=== PATIENT | female | born 1990 | race Caucasian/White ===

== ENCOUNTER → 2016-12-29 | Outpatient (CLI) | payer OTHER, SELFPAY ==
[2016-12-29 12:32] LABS: BASO % 0.4 % (0.0-1.0); EOS # 0.2 K/mm3 (0.0-0.50); LARGE UNSTAINED CELL # 0.1 K/mm3 (0.0-0.4); LARGE UNSTAINED CELL % 1.7 % (0.0-4.0); LYMPH # 2.1 K/mm3 (1.5-6.5); LYMPH % 28.5 % (24.0-44.0); MEAN CORPUSCULAR HEMOGLOBIN 31.4 pg (27.0-33.0); MEAN CORPUSCULAR HGB CONC 33.7 g/dl (32.0-36.5); MEAN CORPUSCULAR VOLUME 92.9 fl (80.0-96.0); MONO # 0.4 K/mm3 (0.0-0.8); MONO % 4.9 % (0.0-5.0); NEUTROPHILS # 4.6 K/mm3 (1.8-7.7); NEUTROPHILS % 62.5 % (36.0-66.0); PLATELET COUNT, AUTOMATED 360 k/mm3 (150-450); RED CELL DISTRIBUTION WIDTH 11.8 % (11.5-14.5); WHITE BLOOD COUNT 7.4 K/mm3 (4.0-10.0)
[2016-12-29 12:55] LABS: ALBUMIN 3.4 GM/DL (3.2-5.2); ALBUMIN/GLOBULIN RATIO 1.06 (1.00-1.93); ALKALINE PHOSPHATASE 50 U/L (45-117); ALT/SGPT 23 U/L (12-78); ANION GAP 8 MEQ/L (8-16); AST/SGOT 10 U/L (15-37); BILIRUBIN,TOTAL 0.4 MG/DL (0.2-1.0); BLOOD UREA NITROGEN 9 MG/DL (7-18); CALCIUM LEVEL 8.9 MG/DL (8.5-10.1); CARBON DIOXIDE LEVEL 27 MEQ/L (21-32); CHLORIDE LEVEL 103 MEQ/L (98-107); CHOLESTEROL LEVEL 180 MG/DL (<200); CREATININE FOR GFR 0.79 MG/DL (0.55-1.02); GLOMERULAR FILTRATION RATE > 60.0 (>60); GLUCOSE, FASTING 90 MG/DL (70-105); POTASSIUM SERUM 4.2 MEQ/L (3.5-5.1); SODIUM LEVEL 138 MEQ/L (136-145); TOTAL PROTEIN 6.6 GM/DL (6.4-8.2); TRIGLYCERIDES LEVEL 168 MG/DL (<150)
== END ==
LOC: M LAB 11:29
PROVIDERS: ATTEND Physician Assistant
DX: L68.0 Hirsutism (principal)

== ENCOUNTER → 2017-05-28 | Outpatient (CLI) | payer OTHER ==
--- NOTE | 2017-05-28 16:17 | REP ---
CT Head without contrast HISTORY: Headache COMPARISON: None There is no intraparenchymal hemorrhage, acute infarct, mass or midline shift. The ventricular system is normal in appearance. There is no extra cerebral collection. There is no fracture. The visualized sinuses are clear. IMPRESSION: There is no intracranial lesion. Signed by Hari Hunter MD 05/28/2017 04:09 P
== END ==
LOC: M RAD 15:39
PROVIDERS: ATTEND Physician Assistant
DX: R51 Headache (principal)

== ENCOUNTER → 2017-07-22 | Outpatient (CLI) | payer OTHER ==
[2017-07-22 10:56] LABS: ALBUMIN 3.5 GM/DL (3.2-5.2); ALBUMIN/GLOBULIN RATIO 0.95 (1.00-1.93); ALKALINE PHOSPHATASE 50 U/L (45-117); ALT/SGPT 28 U/L (12-78); ANION GAP 10 MEQ/L (8-16); AST/SGOT 13 U/L (7-37); BILIRUBIN,TOTAL 0.5 MG/DL (0.2-1.0); BLOOD UREA NITROGEN 9 MG/DL (7-18); CALCIUM LEVEL 8.9 MG/DL (8.5-10.1); CARBON DIOXIDE LEVEL 24 MEQ/L (21-32); CHLORIDE LEVEL 107 MEQ/L (98-107); CREATININE FOR GFR 0.88 MG/DL (0.55-1.02); GLOMERULAR FILTRATION RATE > 60.0 (>60); GLUCOSE, FASTING 95 MG/DL (70-105); POTASSIUM SERUM 3.9 MEQ/L (3.5-5.1); SODIUM LEVEL 141 MEQ/L (136-145); TOTAL PROTEIN 7.2 GM/DL (6.4-8.2)
[2017-07-22 11:04] LABS: FOLLICLE STIMULATING HORMONE 3.3 mIU/mL; LUTEINIZING HORMONE 0.9 mIU/mL
== END ==
LOC: M LAB 09:56
PROVIDERS: ATTEND Family Medicine
DX: E28.2 Polycystic ovarian syndrome (principal)

== ENCOUNTER 2017-07-29 21:32 | Emergency (ER) | payer OTHER ==
[~2017-07-29] VITALS: Ht 175.3 cm; Wt 124.1 kg
[2017-07-29] MEDS ORDERED: BENA25TA10 PO (21:48)
[2017-07-29] MEDS ORDERED: REGL5TAB2 PO (21:48)
[2017-07-29] MEDS ORDERED: TOPA50TA8 PO (21:48)
[2017-07-29] MEDS ORDERED: SPIR100T (21:48)
[2017-07-29] MEDS ORDERED: PREVTAB2 (21:48)
[2017-07-29] MEDS ORDERED: METF500T4 (21:48)
[2017-07-29] MEDS ORDERED: CEFD1CAP8 PO (22:42)
[2017-07-29 23:03] VITALS: BP 136/92
== END 2017-07-29 23:00 | disposition home or self-care (01) ==
LOC: M ED 21:32
DX: J01.00 Acute maxillary sinusitis, unspecified (principal)

== ENCOUNTER → 2017-09-08 | Outpatient (CLI) | payer OTHER | LOC: M SMT 11:51 | DX: R06.00 Dyspnea, unspecified (principal) | CPT/HCPCS: 71046 ==

== ENCOUNTER → 2017-09-13 | Outpatient (CLI) | payer OTHER | LOC: M RAD 16:54 | DX: R22.1 Localized swelling, mass and lump, neck (principal) ==

== ENCOUNTER 2017-11-11 19:20 | Emergency (ER) | payer OTHER ==
[2017-11-11] MEDS ORDERED: LIDOCAINE 1% MDV 20ML VIAL As Ordered (20:41)
[2017-11-11] MEDS: LIDOCAINE 1% MDV 20ML VIAL SC (20:45)
[2017-11-11] MEDS: ADACEL/BOOSTRIX VACCINE (DIPHTH/PERTUSS/ACELL/TETANUS)0.5ML SYR (90715) IM (21:18)
== END 2017-11-11 21:28 | disposition home or self-care (01) ==
LOC: M ED 19:20
DX: S61.512A Laceration without foreign body of left wrist, initial encounter (principal); W26.9XXA Contact with unspecified sharp object(s), initial encounter; Y92.099 Unspecified place in other non-institutional residence as the place of occurrence of the external cause; Y93.G3 Activity, cooking and baking; Z79.84 Long term (current) use of oral hypoglycemic drugs; Z79.899 Other long term (current) drug therapy
CPT/HCPCS: 90715

== ENCOUNTER → 2018-02-25 | Outpatient (CLI) | payer OTHER ==
[2018-02-25 10:43] LABS: ALBUMIN 3.4 GM/DL (3.2-5.2); ALKALINE PHOSPHATASE 45 U/L (45-117); ALT/SGPT 31 U/L (12-78); ANION GAP 10 MEQ/L (8-16); AST/SGOT 13 U/L (7-37); BILIRUBIN,TOTAL 0.3 MG/DL (0.2-1.0); BLOOD UREA NITROGEN 11 MG/DL (7-18); CALCIUM LEVEL 8.4 MG/DL (8.5-10.1); CARBON DIOXIDE LEVEL 22 MEQ/L (21-32); CHLORIDE LEVEL 111 MEQ/L (98-107); CREATININE FOR GFR 0.93 MG/DL (0.55-1.30); FREE T4 0.98 NG/DL (0.76-1.46); GLOMERULAR FILTRATION RATE > 60.0 (>60); GLUCOSE, FASTING 78 MG/DL (70-100); SODIUM LEVEL 143 MEQ/L (136-145); TOTAL PROTEIN 6.5 GM/DL (6.4-8.2)
[2018-02-25 10:50] LABS: ESTIMATED AVERAGE GLUCOSE 100 MG/DL (60-110); HEMOGLOBIN A1c 5.1 %
[2018-02-25 11:05] LABS: TOTAL 25(OH) VITAMIN D 14.5 NG/ML (30.0-100.0)
== END ==
LOC: M LAB 08:36
DX: F34.1 Dysthymic disorder (principal)
CPT/HCPCS: 84443

== ENCOUNTER → 2018-06-15 | Outpatient (CLI) | payer OTHER ==
[2018-06-15 13:43] LABS: TOTAL 25(OH) VITAMIN D 73.5 NG/ML (30.0-100.0)
== END ==
LOC: M SMT 08:31
DX: E55.9 Vitamin D deficiency, unspecified (principal)
CPT/HCPCS: 82306

== ENCOUNTER → 2019-02-08 | Outpatient (REF) | payer OTHER ==
[~2019-02-08] MED LIST: BENA25TA10 PO; CEFD1CAP8 PO; METF10004 PO; METF500T4; PRED20TA PO; PREVTAB2; REGL5TAB2 PO; SPIR100T3 PO; TOPA50TA8 PO; augmentin
== END ==
LOC: M LAB REF 16:24
PROVIDERS: ATTEND Physician Assistant
DX: J02.9 Acute pharyngitis, unspecified (principal)

== ENCOUNTER → 2020-03-12 | Outpatient (CLI) | payer OTHER ==
[~2020-03-12] MED LIST changes: +METF-838; -METF500T4
== END ==
LOC: M LABSMTC 13:45
PROVIDERS: ATTEND Pediatrics
DX: Z03.818 Encounter for observation for suspected exposure to other biological agents ruled out (principal); Z11.59 Encounter for screening for other viral diseases

== ENCOUNTER → 2020-07-17 | Outpatient (CLI) | payer SELFPAY | LOC: M LABSMTC 12:35 | PROVIDERS: ATTEND Pediatrics | DX: Z20.828 Contact with and (suspected) exposure to other viral communicable diseases (principal) ==

== ENCOUNTER → 2020-08-02 | Outpatient (CLI) | payer SELFPAY ==
[~2020-08-02] MED LIST changes: +CLEO150C PO; +CLEO300C2 PO; +FLUC150T PO; +FLUO20CA22 PO
== END ==
LOC: M LABSMTC 11:53
PROVIDERS: ATTEND Pediatrics
DX: Z20.828 Contact with and (suspected) exposure to other viral communicable diseases (principal)
CPT/HCPCS: 87070; U0003

== ENCOUNTER 2020-08-05 09:08 | Emergency (ER) | payer OTHER, SELFPAY ==
[~2020-08-05] VITALS: Ht 175.3 cm; Wt 92.1 kg
[~2020-08-05 09:08] MED LIST changes: -CLEO150C PO; -CLEO300C2 PO; -FLUC150T PO; -FLUO20CA22 PO
[2020-08-05] MEDS ORDERED: FLUO20CA22 PO (09:25)
[2020-08-05] MEDS ORDERED: NS 1,000 ML IV ONE (10:45)
[2020-08-05 11:09] LABS: BASO % 0.6 % (0.0-1.0); EOS % 0.6 % (0.0-3.0); HEMATOCRIT 39.7 % (36.0-47.0); HEMOGLOBIN 13.7 g/dl (12.0-15.5); LYMPH # 1.4 10^3/uL (1.5-5.0); LYMPH % 26.6 % (24.0-44.0); MEAN CORPUSCULAR HEMOGLOBIN 31.4 pg (27.0-33.0); MEAN CORPUSCULAR HGB CONC 34.5 g/dl (32.0-36.5); MEAN CORPUSCULAR VOLUME 91.1 fl (80.0-96.0); MONO # 0.5 10^3/uL (0.0-0.8); MONO % 8.5 % (0.0-5.0); NEUTROPHILS # 3.5 10^3/uL (1.5-8.5); NEUTROPHILS % 63.5 % (36.0-66.0); PLATELET COUNT, AUTOMATED 217 10^3/uL (150-450); RED BLOOD COUNT 4.36 10^6/uL (4.00-5.40); WHITE BLOOD COUNT 5.4 10^3/uL (4.0-10.0)
[2020-08-05 11:31] LABS: ERYTHROCYTE SEDIMENTATION RATE 27 mm/hr (0-20)
[2020-08-05 11:32] LABS: ALBUMIN 3.3 GM/DL (3.2-5.2); ALT/SGPT 24 U/L (12-78); BILIRUBIN,DIRECT 0.1 MG/DL (0.0-0.2); BILIRUBIN,TOTAL 0.3 MG/DL (0.2-1.0); BLOOD UREA NITROGEN 11 MG/DL (7-18); C REACTIVE PROTEIN QUANTITATIV 8.24 MG/DL (0.00-0.30); CALCIUM LEVEL 8.3 MG/DL (8.5-10.1); CARBON DIOXIDE LEVEL 27 MEQ/L (21-32); CHLORIDE LEVEL 107 MEQ/L (98-107); CREATININE FOR GFR 0.64 MG/DL (0.55-1.30); GLOMERULAR FILTRATION RATE > 60.0 (>60); GLUCOSE, FASTING 82 MG/DL (70-100); POTASSIUM SERUM 3.7 MEQ/L (3.5-5.1); SODIUM LEVEL 139 MEQ/L (136-145); TOTAL PROTEIN 6.5 GM/DL (6.4-8.2)
[2020-08-05 11:36] LABS: MONO REFLEX EBV COMP NEGATIVE (NEGATIVE)
[2020-08-05 11:40] LABS: HCG, SERUM QUALITATIVE NEGATIVE (NEGATIVE)
[2020-08-05] MEDS ORDERED: ISOVUE-370 76% 100ML VIAL As Ordered ONE (11:40)
[2020-08-05] MEDS ORDERED: AMPICILLIN SOD/SULBACTAM SOD 3 GM in D5W MINI-BAG PLUS 100 ML IV ONE (12:15)
[2020-08-05] MEDS ORDERED: KETOROLAC 30 MG/ML 1ML VIAL IV ONE (12:15)
[2020-08-05] MEDS ORDERED: dexameTHASONE 20MG/5ML VIAL (J1100 PER 1MG) IV ONE (12:15)
--- NOTE | 2020-08-05 12:32 | REP ---
INDICATION: sig R submandibular swelling, r tonsillar swelling. COMPARISON: None. TECHNIQUE: Helical scanning is acquired and 3 mm axial images are generated. Coronal and sagittal MPR images are provided. 75 mL of intravenous Isovue 370 is administered. FINDINGS: Digital preliminary seasoner hand radiograph is unremarkable. There is straightening of the normal cervical lordosis in the cervical spine with some degenerative disc changes mild in degree. This is most pronounced at C5-6. There is some right-sided uncovertebral spurring at C5-6. No mandibular bony lesion is seen. The maxillary and ethmoid sinuses are clear. Left frontal sinus is clear. Right frontal sinus is not developed. Mastoid aeration is normal. Bony nasal septum is in the midline. And The parotid and submandibular glands are normal and symmetric. Floor of mouth and tongue base are unremarkable. Epiglottis and subglottic airway are unremarkable. Thyroid lobes are normal and homogeneous. There is some asymmetry in the tonsillar soft tissues with the right tonsil being larger than the left. However, there is no evidence of tonsillar or peritonsillar abscess. There is some reactive adenopathy in the right anterior cervical chain. The largest right anterior cervical lymph node measures 15 mm in short axis dimension. There is some shotty mild cervical adenopathy bilaterally. The lung apices are clear. Study is otherwise unremarkable. IMPRESSION: There is asymmetry and enlargement of the right tonsil without evidence of tonsillar or peritonsillar abscess. There is reactive bilateral cervical lymphadenopathy, right greater than left. <Electronically signed by Kirt Jessica > 08/05/20 [id number]
[2020-08-05] MEDS ORDERED: CLEO300C2 PO (13:14)
[2020-08-05] MEDS ORDERED: CLEO150C PO (13:14)
[2020-08-05] MEDS ORDERED: FLUC150T PO (13:25)
[2020-08-05 13:26] VITALS: BP 121/69
[2020-08-06 14:12] LABS: EBV AB TO NUCLEAR ANTIGEN 56.5 U/mL (0.0-17.9); EBV VIRAL CAPSID AG IgM <36.0 U/mL (0.0-35.9)
== END 2020-08-05 13:27 | disposition home or self-care (01) ==
LOC: M ED 09:08
DX: J02.0 Streptococcal pharyngitis (principal); Z88.1 Allergy status to other antibiotic agents
CPT/HCPCS: 70491; 80048; 80076; 83605; 84703; 85025; 85652; 86140; 86308; 86664; 86665; 87040; 87880; 96361; 96365; 96375; 99284; J1100; J1885; Q9967

== ENCOUNTER 2020-08-08 08:09 | Emergency (ER) | payer OTHER ==
[~2020-08-08] VITALS: Ht 175.3 cm; Wt 92.6 kg
[2020-08-08 08:09] VITALS: BP 119/66
[~2020-08-08 08:09] MED LIST changes: +CLEO150C PO; +CLEO300C2 PO; +FLUC150T PO; +FLUO20CA22 PO
[2020-08-08] MEDS ORDERED: PRED20TA PO (08:45)
[2020-08-08] MEDS ORDERED: KEFL500C17 PO (08:45)
== END 2020-08-08 09:03 | disposition home or self-care (01) ==
LOC: M ED 08:09
DX: J02.0 Streptococcal pharyngitis (principal); Z88.1 Allergy status to other antibiotic agents; Z79.899 Other long term (current) drug therapy

== ENCOUNTER → 2020-08-28 | Outpatient (CLI) | payer SELFPAY ==
[~2020-08-28] MED LIST changes: +KEFL500C17 PO
== END ==
LOC: M LABSMTC 14:12
PROVIDERS: ATTEND Pediatrics
DX: Z20.822 Contact with and (suspected) exposure to COVID-19 (principal)

== ENCOUNTER → 2021-04-18 | Outpatient (CLI) | payer OTHER ==
--- NOTE | 2021-04-18 09:26 | REP ---
INDICATION: PAIN IN LEFT KNEE COMPARISON: None TECHNIQUE: Five views FINDINGS: The compartments are symmetric and well maintained. There is no acute fracture, dislocation, or subluxation. IMPRESSION: Within normal limits <Electronically signed by Israel Cruz > 04/18/21 [id number]
== END ==
LOC: M PLALAB 09:01
PROVIDERS: ATTEND Family Medicine
DX: M25.562 Pain in left knee (principal)

== ENCOUNTER 2021-05-20 08:30 | Outpatient (RCR) | payer OTHER | END 2021-05-22 | LOC: M PT 08:30 | PROVIDERS: ATTEND Physician Assistant Surgical | DX: S83.92XA Sprain of unspecified site of left knee, initial encounter (principal) ==

== ENCOUNTER 2021-06-19 07:30 | Outpatient (RCR) | payer OTHER, SELFPAY | END 2021-06-22 | LOC: M PT 07:30 | PROVIDERS: ATTEND Physician Assistant Surgical | DX: Z47.89 Encounter for other orthopedic aftercare (principal); S83.92XA Sprain of unspecified site of left knee, initial encounter; X58.XXXA Exposure to other specified factors, initial encounter; Y92.9 Unspecified place or not applicable ==

== ENCOUNTER 2021-07-16 16:45 | Outpatient (RCR) | payer BC, SELFPAY ==
[~2021-07-16 16:45] MED LIST changes: -CEFD1CAP8 PO; +CEFD300C41 PO; -FLUC150T PO; +FLUC150T9 PO
== END 2021-07-22 ==
LOC: M PT 16:45
PROVIDERS: ATTEND Physician Assistant
DX: S93.402A Sprain of unspecified ligament of left ankle, initial encounter (principal); X58.XXXA Exposure to other specified factors, initial encounter; Y92.9 Unspecified place or not applicable

== ENCOUNTER 2021-07-31 08:30 | Outpatient (RCR) | payer BC, SELFPAY ==
[~2021-07-31 08:30] MED LIST changes: +CEFD1CAP8 PO; -CEFD300C41 PO; +FLUC150T PO; -FLUC150T9 PO
== END 2021-08-22 ==
LOC: M PT 08:30
PROVIDERS: ATTEND Physician Assistant
DX: S93.402A Sprain of unspecified ligament of left ankle, initial encounter (principal)

== ENCOUNTER → 2021-08-01 | Outpatient (CLI) | payer BC, OTHER ==
[~2021-08-01] MED LIST changes: -CEFD1CAP8 PO; +CEFD300C41 PO; -FLUC150T PO; +FLUC150T9 PO
[2021-08-01 13:30] LABS: BASO % 0.5 % (0.0-1.0); EOS # 0.2 10^3/uL (0.0-0.5); EOS % 3.4 % (0.0-3.0); HEMATOCRIT 41.9 % (36.0-47.0); HEMOGLOBIN 13.7 g/dl (12.0-15.5); LYMPH # 2.4 10^3/uL (1.5-5.0); MEAN CORPUSCULAR HEMOGLOBIN 30.1 pg (27.0-33.0); MEAN CORPUSCULAR HGB CONC 32.7 g/dl (32.0-36.5); MEAN CORPUSCULAR VOLUME 92.1 fl (80.0-96.0); MONO # 0.5 10^3/uL (0.0-0.8); MONO % 8.9 % (2.0-8.0); NEUTROPHILS # 2.5 10^3/uL (1.5-8.5); NEUTROPHILS % 44.2 % (36.0-66.0); PLATELET COUNT, AUTOMATED 311 10^3/uL (150-450); RED BLOOD COUNT 4.55 10^6/uL (4.00-5.40); WHITE BLOOD COUNT 5.6 10^3/uL (4.0-10.0)
[2021-08-01 13:58] LABS: ALBUMIN 3.2 GM/DL (3.2-5.2); ALT/SGPT 20 U/L (12-78); AMYLASE 38 U/L (25-115); BILIRUBIN,TOTAL 0.4 MG/DL (0.2-1.0); BLOOD UREA NITROGEN 14 MG/DL (7-18); CARBON DIOXIDE LEVEL 28 MEQ/L (21-32); CHLORIDE LEVEL 107 MEQ/L (98-107); CREATININE FOR GFR 0.65 MG/DL (0.55-1.30); GLOMERULAR FILTRATION RATE > 60.0 (>60); GLUCOSE, FASTING 94 MG/DL (70-100); LIPASE 99 U/L (73-393); POTASSIUM SERUM 4.1 MEQ/L (3.5-5.1); SODIUM LEVEL 140 MEQ/L (136-145); TOTAL PROTEIN 6.4 GM/DL (6.4-8.2)
== END ==
LOC: M PLALAB 09:27
PROVIDERS: ATTEND Family Medicine
DX: R10.11 Right upper quadrant pain (principal)

== ENCOUNTER → 2021-08-22 | Outpatient (REF) ==
[~2021-08-22] MED LIST changes: +CEFD1CAP8 PO; -CEFD300C41 PO; +FLUC150T PO; -FLUC150T9 PO
[2021-08-22 12:46] LABS: RSV AMPLIFICATION NEGATIVE (NEGATIVE)
== END ==
LOC: M LABSMTC 09:02
PROVIDERS: ATTEND Family Medicine
DX: Z20.822 Contact with and (suspected) exposure to COVID-19 (principal)

== ENCOUNTER → 2022-05-05 | Outpatient (REF) ==
[~2022-05-05] MED LIST changes: -CEFD1CAP8 PO; +CEFD300C41 PO; -FLUC150T PO; +FLUC150T9 PO
== END ==
LOC: M LABSMTC 11:51
PROVIDERS: ATTEND Family Medicine
DX: Z20.822 Contact with and (suspected) exposure to COVID-19 (principal); Z11.52 Encounter for screening for COVID-19

== ENCOUNTER → 2022-05-24 | Outpatient (REF) | LOC: M LABSMTC 09:37 | PROVIDERS: ATTEND Family Medicine | DX: Z11.52 Encounter for screening for COVID-19 (principal) ==

== ENCOUNTER → 2022-06-17 | Outpatient (REF) | LOC: M LABSMTC 09:43 | PROVIDERS: ATTEND Family Medicine | DX: Z20.828 Contact with and (suspected) exposure to other viral communicable diseases (principal); Z11.59 Encounter for screening for other viral diseases ==

== ENCOUNTER → 2022-08-12 | Outpatient (REF) ==
[2022-08-12 13:38] LABS: RSV AMPLIFICATION NEGATIVE (NEGATIVE)
== END ==
LOC: M LABSMTC 10:12
PROVIDERS: ATTEND Family Medicine
DX: Z20.818 Contact with and (suspected) exposure to other bacterial communicable diseases (principal)

== ENCOUNTER → 2022-08-20 | Outpatient (REF) | LOC: M EMP 08:10 | PROVIDERS: ATTEND Family Medicine | DX: Z11.52 Encounter for screening for COVID-19 (principal) ==

== ENCOUNTER → 2022-09-14 | Outpatient (CLI) | payer BC ==
[2022-09-14 11:06] LABS: BASO % 0.5 % (0.0-1.0); EOS # 0.2 10^3/uL (0.0-0.5); EOS % 3.4 % (0.0-3.0); HEMATOCRIT 42.1 % (36.0-47.0); HEMOGLOBIN 13.8 g/dl (12.0-15.5); LYMPH # 2.7 10^3/uL (1.5-5.0); MEAN CORPUSCULAR HEMOGLOBIN 30.1 pg (27.0-33.0); MEAN CORPUSCULAR HGB CONC 32.8 g/dl (32.0-36.5); MEAN CORPUSCULAR VOLUME 91.9 fl (80.0-96.0); MONO # 0.5 10^3/uL (0.0-0.8); MONO % 7.8 % (2.0-8.0); NEUTROPHILS # 3.1 10^3/uL (1.5-8.5); PLATELET COUNT, AUTOMATED 342 10^3/uL (150-450); RED BLOOD COUNT 4.58 10^6/uL (4.00-5.40); WHITE BLOOD COUNT 6.5 10^3/uL (4.0-10.0)
[2022-09-14 11:27] LABS: ALBUMIN 3.1 G/DL (3.2-5.2); ALKALINE PHOSPHATASE 62 U/L (46-116); ALT/SGPT 22 U/L (7.0-40); AST/SGOT 13 U/L (<34); BILIRUBIN,TOTAL 0.3 MG/DL (0.3-1.2); BLOOD UREA NITROGEN 11 MG/DL (9-23); CALCIUM LEVEL 8.8 MG/DL (8.5-10.1); CARBON DIOXIDE LEVEL 29 MMOL/L (20-31); CHLORIDE LEVEL 106 MMOL/L (98-107); CHOLESTEROL LEVEL 192 MG/DL (<200); CHOLESTEROL RISK RATIO 3.26 (<5); CREATININE FOR GFR 0.82 MG/DL (0.55-1.30); FREE T4 1.01 NG/DL (0.89-1.76); GLOMERULAR FILTRATION RATE > 60.0 (>60); GLUCOSE, FASTING 84 MG/DL (60-100); HDL CHOLESTEROL 58.8 MG/DL (>40); NON-HDL-C 133 MG/DL; POTASSIUM SERUM 4.5 MMOL/L (3.5-5.1); SODIUM LEVEL 142 MMOL/L (136-145); THYROID STIMULATING HORMONE 1.475 uIU/ML (0.55-4.78); TOTAL PROTEIN 6.1 G/DL (5.7-8.2); TRIGLYCERIDES LEVEL 106 MG/DL (<150)
[2022-09-14 11:28] LABS: HEMOGLOBIN A1c 4.8 % (4.0-6.0)
== END ==
LOC: M PLALAB 09:17
PROVIDERS: ATTEND Nurse Practitioner Adult Health
DX: F34.1 Dysthymic disorder (principal); E28.2 Polycystic ovarian syndrome; Z13.220 Encounter for screening for lipoid disorders

== ENCOUNTER → 2022-09-28 | Outpatient (CLI) | payer BC | LOC: M RAD 06:37 | PROVIDERS: ATTEND Nurse Practitioner Adult Health | DX: R10.11 Right upper quadrant pain (principal) ==

== ENCOUNTER 2023-02-18 07:35 | Emergency (ER) | payer OTHER, BC ==
[~2023-02-18] VITALS: Ht 175.3 cm; Wt 149.9 kg
[2023-02-18 07:36] VITALS: BP 146/73; TEMP 96.6; O2SAT 97
[2023-02-18] MEDS ORDERED: IBUP-1022 PO (07:44)
[2023-02-18] MEDS ORDERED: ONDA4TAB6 (07:44)
[2023-02-18] MEDS ORDERED: RIME75TA (07:44)
== END 2023-02-18 09:26 | disposition home or self-care (01) ==
LOC: M ED 07:35
DX: S43.401A Unspecified sprain of right shoulder joint, initial encounter (principal); E28.2 Polycystic ovarian syndrome; F41.9 Anxiety disorder, unspecified; F32.A Depression, unspecified; Y99.0 Civilian activity done for income or pay; Z88.1 Allergy status to other antibiotic agents; Z79.1 Long term (current) use of non-steroidal anti-inflammatories (NSAID); Z79.899 Other long term (current) drug therapy

== ENCOUNTER → 2023-07-28 | Outpatient (CLI) | payer BC ==
[~2023-07-28] MED LIST changes: +CEFD1CAP9 PO; -CEFD300C41 PO; +HYDR-3363 PO; +IBUP-1022 PO; +ONDA4TAB6; +RIME75TA
== END ==
LOC: M PLAIMG 10:32
PROVIDERS: ATTEND Nurse Practitioner Adult Health
DX: S83.401A Sprain of unspecified collateral ligament of right knee, initial encounter (principal); Y93.9 Activity, unspecified; Y92.9 Unspecified place or not applicable

== ENCOUNTER → 2023-09-22 | Outpatient (REF) | payer BC | LOC: M PLALAB 17:27 | PROVIDERS: ATTEND Nurse Practitioner Adult Health | DX: Z80.3 Family history of malignant neoplasm of breast (principal) ==

== ENCOUNTER → 2024-09-20 | Outpatient (CLI) | payer BC ==
[~2024-09-20] MED LIST changes: +FLUO-365 PO; -FLUO20CA22 PO; +ONDA-282; -ONDA4TAB6
== END ==
LOC: M LAB 00:59
PROVIDERS: ATTEND Nurse Practitioner Adult Health
DX: R19.7 Diarrhea, unspecified (principal); R14.0 Abdominal distension (gaseous)

== ENCOUNTER → 2024-09-26 | Outpatient (CLI) | payer BC | LOC: M LAB 06:55 | PROVIDERS: ATTEND Family Medicine | DX: R14.0 Abdominal distension (gaseous) (principal); R19.7 Diarrhea, unspecified ==

== ENCOUNTER → 2024-11-23 | Outpatient (CLI) | payer BC ==
[2024-11-23 10:27] LABS: HEMOGLOBIN A1c 4.7 % (4.0-6.0)
== END ==
LOC: M PLALAB 09:07
PROVIDERS: ATTEND Specialist
DX: N92.6 Irregular menstruation, unspecified (principal)

== ENCOUNTER → 2025-06-20 | Outpatient (REF) | payer BC ==
[~2025-06-20] MED LIST changes: -IBUP-1022 PO; +IBUP600T42 PO
== END ==
LOC: M LAB REF 17:07
PROVIDERS: ATTEND Physician Assistant
DX: J02.9 Acute pharyngitis, unspecified (principal)